=== PATIENT | male | born 1955 | race African-American/Black ===

== ENCOUNTER 2016-12-23 03:06 | Inpatient (IN) ==
[2016-12-18 11:12] LABS: MANUAL DIFF NEEDED? NO
[2016-12-18 11:15] LABS: URINE SOURCE CLEAN CATCH
[2016-12-18 11:17] LABS: BASO% 0.2 % (0.0-0.8); EOS# 0.15 X1000 (0.0-0.7); EOS% 3.7 % (0.0-10.0); HEMATOCRIT 36.5 % (42.0-52.0); HEMOGLOBIN 12.5 g/dL (14.0-18.0); LYMPH# 1.34 X1000 (1.2-3.4); LYMPH% 33.1 % (20.5-51.1); MCH 28.3 PG (27-31); MCHC 34.2 g/dL (33-37); MCV 82.8 FL (81-99); MONO# 0.43 X1000 (0.11-0.59); MONO% 10.6 % (1.7-9.3); MPV 9.3 FL (7.4-10.4); NEUT% 52.4 % (42.2-75.2); PLT 199 X1000 (130-400); RBC 4.41 XMIL (4.7-6.1)
[2016-12-18 11:28] LABS: BILIRUBIN URINE NEGATIVE (NEGATIVE); BLOOD URINE NEGATIVE (NEGATIVE); CLARITY CLEAR (CLEAR); COLOR YELLOW; GLUCOSE URINE NEGATIVE (NEGATIVE); LEUKOCYTES URINE NEGATIVE (NEGATIVE); NITRITE URINE NEGATIVE (NEGATIVE); PROTEIN URINE TRACE mg/dL (NEGATIVE); URINE MICROSCOPIC NEEDED? YES; UROBILINOGEN URINE NORMAL
[2016-12-18 11:38] LABS: INR 0.9 (0.86-1.15); PROTIME 12.9 Seconds (12.1-15.5)
[2016-12-18 11:39] LABS: PTT PL 34.3 Seconds (22.6-43.9)
[2016-12-18 11:45] LABS: URINE CAST NONE SEEN /LPF; URINE CRYSTAL NONE SEEN /HPF; URINE EPITHELIAL CELLS <10 /HPF (<10); URINE RBC <10 /HPF (<10); URINE WBC <10 /HPF (<10)
[2016-12-18 11:53] LABS: CALCIUM 9.1 mg/dL (8.8-10.2); POTASSIUM 3.9 mmol/L (3.5-5.1)
--- NOTE | 2016-12-18 13:38 | EKG Report ---
Test Performed on : 12/18/2016 12:14:51 PM Test Reason : DR. DAMON Blood Pressure : / mmHG Vent. Rate : 084 BPM Atrial Rate : 084 BPM P-R Int : 156 ms QRS Dur : 082 ms QT Int : 326 ms P-R-T Axes : 035 -20 026 degrees QTc Int : 385 ms Normal sinus rhythm. Minimal voltage criteria for LVH, may be normal variant Nonspecific T wave abnormality Abnormal ECG No previous ECGs available Confirmed by Gilmar Martinez MD ([id number]) on 01/15/2017 7:26:31 PM
[2016-12-23] MEDS ORDERED: COLACE ONE (05:23)
[2016-12-23] MEDS ORDERED: LYRICA ONE (05:24)
[2016-12-23] MEDS ORDERED: PEPCID ONE (05:24)
[2016-12-23] MEDS ORDERED: CELEBREX ONE (05:24)
[2016-12-23] MEDS ORDERED: REGLAN ONE (05:24)
[2016-12-23] MEDS ORDERED: KEFZOL 2 GM/D5W 2 GM/50 ML IVPB ONE (05:25)
[2016-12-23] MEDS ORDERED: LR 1,000 ML ONE (05:25)
[2016-12-23] MEDS ORDERED: FENTANYL ONE ×2 (06:27→07:14)
[2016-12-23] MEDS ORDERED: SENSORCAINE-MPF 0.5%/EPI 1:200,000 ONE (06:39)
[2016-12-23] MEDS ORDERED: TORADOL ONE (06:39)
[2016-12-23] MEDS ORDERED: VANCOMYCIN ONE (06:39)
[2016-12-23] MEDS ORDERED: DURAMORPH ONE (06:39)
[2016-12-23] MEDS ORDERED: EXPAREL 1.3% ONE (06:40)
[2016-12-23] MEDS ORDERED: SODIUM CHLORIDE 0.9% ONE (06:40)
[2016-12-23] MEDS ORDERED: NEOSPORIN G.U. IRRIGANT ONE (06:41)
[2016-12-23] MEDS ORDERED: MARCAINE 0.25% PF ONE (07:16)
[2016-12-23] MEDS ORDERED: CYKLOKAPRON 1,000 MG/NS 2,000 MG/200 ML IVPB ONE (07:21)
[2016-12-23] MEDS ORDERED: EPHEDRINE ONE (08:19)
[2016-12-23] MEDS ORDERED: OFIRMEV 1000 MG/ISOTONIC SOLN 1,000 MG/100 ML BOTTLE ONE (08:23)
[2016-12-23] MEDS ORDERED: ZOFRAN ONE (08:23)
[2016-12-23] MEDS ORDERED: DECADRON ONE (08:23)
[2016-12-23] MEDS ORDERED: NS 1,000 ML ONE (09:36)
[2016-12-23] MEDS ORDERED: AMBIEN PO PRN (11:30)
[2016-12-23] MEDS ORDERED: ZOFRAN IV PRN (11:30)
[2016-12-23] MEDS ORDERED: MILK OF MAGNESIA PO PRN (11:30)
[2016-12-23] MEDS ORDERED: OXY IR PO PRN (11:30)
[2016-12-23] MEDS ORDERED: MORPHINE IV PRN (11:30)
[2016-12-23] MEDS: NS 1,000 ML IV SCH ×2 (11:45→20:33)
--- NOTE | 2016-12-23 12:01 | OPERATIVE NOTE ---
PROCEDURE DATE: 12/23/2016 PREOPERATIVE DIAGNOSIS: Left knee degenerative joint disease. POSTOPERATIVE DIAGNOSIS: Left knee degenerative joint disease. PROCEDURE PERFORMED: Left total knee arthroplasty using [facility] size 7 femoral component, size 7 baseplate, a 13 mm articular insert, and a 38 mm patellar component. SURGEON: Richard Kennedy MD 1ST CONTROL AND RECOVERY COMBAT RESCUE: Gilmar Augustin PA-C, who was present throughout the case, assisted with critical portions of the case, including preparation of the bone for implants, assisting with implantation, including cement removal, and assisting with wound closure. 2ND CONTROL AND RECOVERY COMBAT RESCUE: Michael Alvarado RN ANESTHESIA: Spinal. COMPLICATIONS: None. BLOOD LOSS: Minimal. TOURNIQUET TIME: Approximately an hour and a half. DESCRIPTION OF PROCEDURE: The patient was brought to the operating suite and was placed in supine position. After successful administration of surgeon of spinal anesthesia, a well-padded tourniquet was placed on the left proximal thigh. The left lower extremity was prepped and draped in the usual sterile fashion. The leg was exsanguinated. The tourniquet was insufflated to 350 torr. A longitudinal incision was made beginning at the superior pole of the patella and extending distally to the tibial tuberosity. It was dissected sharply through the skin. Full- thickness skin flaps were elevated medially and laterally. A medial arthrotomy was made with a vastus snip. The medial capsule was elevated off the medial tibial plateau. The prepatellar fat pad, ACL, PCL, medial meniscus, and lateral meniscus were excised. A drill was entered in the center of the distal femur. An intramedullary guide was placed. A distal cutting block was pinned in place. A distal cut was made with an oscillating saw. The femur was sized to size 7. A size 7 cutting block was pinned in place. Anterior cuts, chamfer cuts, and posterior condylar cuts were made with the oscillating saw. Marginal osteophytes were removed with a rongeur. A box cutting block was pinned in place. A box cut was made with a box osteotome and oscillating saw. The posterior condylar osteophytes were removed with a curved osteotome and rongeur. Attention was then directed to the tibia. A drill was entered into the center of the tibia. An intramedullary guide was placed. Alignment was checked with a drop oksana, referencing off the anterior cortex of the tibia and 2nd ray of the foot and taking 4 mm off the low side of the tibia which, in this case, was medially. The tibial cutting block was pinned in place. The articular surface of the tibial plateau was removed with an oscillating saw. Flexion and extension gaps were checked and balanced at 13 mm. The tibia was sized to size 7. A size 7 guide was used for the fin punch. The tibial trial, femoral trial, and 13 mm articular insert were placed, taken through range of motion, and found to have excellent alignment, balancing, and range of motion. There were some marginal osteophytes on the tibia that were removed with a rongeur. Attention was then directed to the patella, and 9 mm off the articular surface of the patella was removed with an oscillating saw. The patella was sized to size 38. A size 38 guide was used to drill peg holes. The lateral facet was chamfered 30-45 degrees. A patellar trial was placed, taken through range of motion, and found to have excellent patella tracking. All trials were then removed. The knee was copiously irrigated and dried, being certain all bone debris was removed. The tibial component, femoral component, and patellar component were cemented into place with excess cement being removed with a [place]. Once the cement had hardened, excess cement was again removed with an osteotome. The knee was again copiously irrigated and dried, being certain all bone and cement debris was removed. The knee was copiously infiltrated with Exparel, including the posterior capsule, anterior capsule, medial and lateral collateral ligaments, anterior musculature, and subcutaneous tissue. The definitive 13 mm articular insert was locked into place. The knee was again taken through range of motion and again found to have excellent alignment, balancing, range of motion, and patellar tracking. A drain was placed exiting superolaterally and buried in the lateral gutter. The medial arthrotomy was closed with a running 0 V-Loc suture. The skin edge was approximated with 2-0 Vicryl. The skin was closed with Prineo. A sterile dressing was applied. The patient tolerated the procedure well without complication. At the end of the procedure, all counts were correct x2. The patient was transferred to the recovery room in stable condition. cc: Richard Kennedy MD
[2016-12-23] MEDS: TYLENOL PO SCH ×3 (12:59→20:39)
[2016-12-23] MEDS: ULTRAM PO SCH ×3 (12:59→20:39)
[2016-12-23] MEDS: PERIDEX MT SCH ×2 (13:01→20:33)
[2016-12-23] MEDS: KEFZOL 2 GM/D5W 2 GM/50 ML IVPB IV SCH ×2 (16:52→23:14)
[2016-12-23] MEDS: LYRICA PO SCH (20:33)
[2016-12-23] MEDS: COLACE PO SCH (20:33)
[2016-12-23] MEDS: CELEBREX PO SCH (20:33)
[2016-12-24] MEDS: TYLENOL PO SCH ×2 (02:59→09:25)
[2016-12-24] MEDS: ULTRAM PO SCH ×2 (02:59→13:02)
[2016-12-24] MEDS: NS 1,000 ML IV SCH (05:22)
[2016-12-24] MEDS ORDERED: XARELTO PO SCH (06:00)
[2016-12-24 06:21] LABS: HEMOGLOBIN 10.4 g/dL (14.0-18.0)
[2016-12-24 06:41] LABS: AGAP 11; BUN 16 mg/dL (8-22); CALCIUM 8.7 mg/dL (8.8-10.2); CHLORIDE 106 mmol/L (98-107); COSMO 287; POTASSIUM 4.3 mmol/L (3.5-5.1); SODIUM 142 mmol/L (136-145); TCO2 25 mmol/L (25-35)
[2016-12-24] MEDS ORDERED: PRILOSEC PO SCH (07:00)
[2016-12-24] MEDS ORDERED: NORVASC PO SCH (09:00)
[2016-12-24] MEDS ORDERED: PRINIVIL PO SCH (09:00)
[2016-12-24] MEDS ORDERED: DECADRON IV ONE (09:00)
[2016-12-24] MEDS ORDERED: PEPCID PO SCH (09:00)
[2016-12-24] MEDS: CELEBREX PO SCH (09:24)
[2016-12-24] MEDS: COLACE PO SCH (09:25)
[2016-12-24] MEDS: LYRICA PO SCH (09:25)
[2016-12-24] MEDS: PERIDEX MT SCH (09:26)
--- NOTE | 2016-12-24 09:42 | DISCHARGE SUMMARY ---
ADMISSION DATE: 12/23/2016 DISCHARGE DATE: 12/24/2016 DISCHARGE DIAGNOSIS: Left total knee arthroplasty. DISCHARGE MEDICATIONS: See discharge medication list. DISPOSITION: Patient discharged home with home health and physical therapy. Instructed to return for any signs or symptoms of infection or deep venous thrombosis. Instructed to return to see Dr. Kennedy in 10 days. HOSPITAL COURSE: On the day of admission, the patient underwent a left total knee arthroplasty. His postoperative course was unremarkable. At discharge, he is afebrile, tolerating a regular diet, ambulating well with Physical Therapy. He is discharged home in stable condition, with instructions to follow up as described above. cc: Richard Kennedy MD
[2016-12-24 12:33] VITALS: BP 124/67
--- NOTE | 2017-01-10 11:08 | OPERATIVE NOTE ---
PROCEDURE DATE: 12/23/2016 PREOPERATIVE DIAGNOSIS: History of prostate cancer, inability to place Andrews catheter. POSTOPERATIVE DIAGNOSIS: History of prostate cancer, inability to place Andrews catheter. PROCEDURE PERFORMED: Urethral dilation, difficult Andrews placement. SURGEON: Rob De Oliveira MD INDICATIONS: The patient is a 61-year-old male who is scheduled to undergo total knee arthroplasty. Anesthesia was administered. Andrews catheter placement attempts by nursing staff were unsuccessful. Urology was consulted. Again, he has history of prostate cancer, status post robotic prostatectomy. FINDINGS: I could not introduce a 16-Palauan or 14-Palauan Andrews catheter, which prompted me to used a Bard difficult catheterization kit. He appeared to have resistance at the level of the bladder neck, which likely corresponds to bladder neck contracture. It was dilated up to 20- Pal[place] over the filiform and, subsequent to that, an 18-Palauan Andrews catheter was placed with return of clear urine. ESTIMATED BLOOD LOSS: None. COMPLICATIONS: None. DISPOSITION: He was turned back over to Dr. Kennedy for his orthopedic procedure. cc: MD Richard Davies MD
== END 2016-12-24 13:04 | disposition home health service (06) ==
LOC: SURHOLD 03:06 → 4N 07:30
PROVIDERS: ADMIT Orthopaedic Surgery; ATTEND Orthopaedic Surgery